=== PATIENT | female | born 1960 | race Caucasian/White ===

== ENCOUNTER 2018-02-21 06:06 | Emergency (ER) | payer SELFPAY ==
[2018-02-21] MEDS ORDERED: traMADol HCl 50 MG TAB ONE (06:21)
--- NOTE | 2018-02-21 08:24 | CT ---
PRELIMINARY REPORT/[facility]/EMERGENCY AFTER HOURS PROCEDURE: EXAM: CT Maxillofacial Without Intravenous Contrast CLINICAL HISTORY: 57 years old, female; Injury or trauma; Fall; Initial encounter; Blunt trauma (contusions or hematoma s); Forehead; Injury date: 02/21/18; Injury details: jesus Arriaza kristy - 02/21/2018 6: 28: 09 am . No previous. Er 4. 57 yo f presents to ed S/P fall. Pt reports she slipped getting out of her batht ub about 2 hours ago and hit her head. Pt reports facial pain and tooth pain in both her back and fro nt molar. Pt denies dizziness/lightheaded, denies loc, denies any other pain. Pt reports history of h epatitis c, pt takes aspirin to help but nothing stronger than aspirin. Pt reports she takes tramadol when in bad pain, tramadol is prescribed to her family member. TECHNIQUE: Axial computed tomography images of the face without intravenous contrast. All CT scans at this [facility] use one or more dose reduction techniques, viz.: automated exposure control; ma/Kv adjustment per patient size (including targeted exams where dose is matched to indication; i.e. head); or iterative reconstruction technique. Coronal and sagittal reformatted images were created and revie wed. COMPARISON: No relevant prior studies available. FINDINGS: No definite evidence of acute facial bone fracture. Orbital contents appear intact/unremarkable. Mild mucosal thickening in the left maxillary sinus. Included paranasal sinuses otherwise appear essentially clear. IMPRESSION: No definite acute facial bone/orbital fracture by CT. Paranasal sinus findings as discussed above. Thank you for allowing us to participate in the care of your patient. Dictated and Authenticated by: Juan Diego Mendoza MD 02/21/2018 7:18 AM Central Time ([place] & [place]) FINAL REPORT MAXILLOFACIAL CT: HISTORY: Patient involved in trauma. Facial injury and pain. FINDINGS: Noncontrast-enhanced axial images are obtained with coronal and sagittal reconstructions. The frontal, ethmoid, maxillary, and sphenoid sinuses demonstrate no evidence of acute fractures or d efinite air fluid levels. Some mild to moderate left maxillary sinus mucosal thickening is seen. No evidence of other facial fractures or bony lesions seen. IMPRESSION: Some mild left maxillary sinus mucosal thickening; otherwise, unremarkable CT maxillofacial. POS: [facility]
--- NOTE | 2018-02-21 08:24 | CT ---
PRELIMINARY REPORT/[facility]/EMERGENCY AFTER HOURS PROCEDURE: EXAM: CT Head Without Intravenous Contrast CLINICAL HISTORY: 57 years old, female; Injury or trauma; Fall; Initial encounter; Swelling (edema); Injury details: Im jesus Landry kristy - 02/21/2018 6: 28: 09 am. No previous. Er 4. 57 yo f presents to ed S/P fall. Pt reports she slipped getting out of her bathtub about 2 hours ago and hit her head. Pt reports fac ial pain and tooth pain in both her back and front molar. Pt denies dizziness/lightheaded, denies loc , denies any other pain. Pt reports history of hepatitis c, pt takes aspirin to help but nothing stro nger than aspirin. Pt reports she takes tramadol when in bad pain, tramadol is prescribed to her family me mber. TECHNIQUE: Axial computed tomography images of the head/brain without intravenous contrast. All CT scans at this facility use one or more dose reduction techniques, viz.: automated exposure control; ma/Kv adjustme nt per patient size (including targeted exams where dose is matched to indication; i.e. head); or ite rative reconstruction technique. COMPARISON: No relevant prior studies available. FINDINGS: Evidence for soft tissue injury/scalp hematoma in the left frontal region. No definite acute skull fracture. Included paranasal sinuses are essentially clear. No acute intracranial hemorrhage or mass effect. Ventricle size is normal for age. No definite acute infarct by CT. IMPRESSION: No acute intracranial bleed or mass effect. Evidence for soft tissue injury/scalp hematoma in the left frontal region. No definite acute skull fracture. Please see subsequent CT facial bone report for complete evaluation of the facial bones. Thank you for allowing us to participate in the care of your patient. Dictated and Authenticated by: Juan Diego Mendoza MD 02/21/2018 7:15 AM Central Time ([place] & [place]) FINAL REPORT EMERGENCY AFTER HOURS CT OF BRAIN PERFORMED WITHOUT CONTRAST ENHANCEMENT: Date: 02/21/18 HISTORY: Head injury, status post fall. FINDINGS: The ventricular and cisternal system is within normal limits. There are no signs of intracerebral hem orrhage or extra-axial fluid collections. Mastoid air cells and visualized sinuses are clear. IMPRESSION: 1. No acute intracranial abnormalities. 2. Left frontal scalp hematoma. This report is in agreement with the preliminary report issued by [facility]. POS: [facility]
== END 2018-02-21 07:51 | disposition left against medical advice (07) ==
LOC: ERS 06:06
DX: S00.83XA Contusion of other part of head, initial encounter (principal); J45.909 Unspecified asthma, uncomplicated; F31.9 Bipolar disorder, unspecified; F17.290 Nicotine dependence, other tobacco product, uncomplicated; Z79.899 Other long term (current) drug therapy; W01.198A Fall on same level from slipping, tripping and stumbling with subsequent striking against other object, initial encounter
CPT/HCPCS: 70450; 70486; 99406

== ENCOUNTER 2018-10-26 15:32 | Emergency (ER) | payer SELFPAY ==
--- NOTE | 2018-10-26 16:18 | RAD ---
TWO VIEWS CHEST: 10/26/18 PROVIDED CLINICAL HISTORY: Cough and congestion. FINDINGS: Comparison 06/06/13. The cardiac and mediastinal silhouette is unchanged in appearance. Calcified left hilar lymph nodes a re again seen. No focal consolidation, pleural fluid or pneumothorax apparent. IMPRESSION: No evidence for an acute cardiopulmonary process. POS: [facility]
== END 2018-10-26 16:51 | disposition home or self-care (01) ==
LOC: ERS 15:32
DX: J20.9 Acute bronchitis, unspecified (principal); J45.909 Unspecified asthma, uncomplicated; F31.9 Bipolar disorder, unspecified; F17.290 Nicotine dependence, other tobacco product, uncomplicated; Z79.899 Other long term (current) drug therapy
CPT/HCPCS: 71046

== ENCOUNTER 2019-06-11 11:37 | Emergency (ER) | payer SELFPAY ==
--- NOTE | 2019-06-11 12:24 | RAD ---
EXAM: Portable chest PROVIDED CLINICAL HISTORY: Chest pain COMPARISON: None 10/26/2018 FINDINGS: Cardiac and mediastinal silhouette is within normal limits. No focal consolidation, pleural fluid or pneumothorax evident. Calcified left hilar lymph nodes are again seen. IMPRESSION: No evidence for an acute cardiopulmonary process.
[2019-06-11 12:52] LABS: #Basophils 0.1 thou/uL (0.0-0.2); #Eosinphils 0.1 thou/uL (0.0-0.7); #Lymphocytes 5.7 thou/uL (1.20-3.40); #Monocytes 0.8 thou/uL (0.11-0.59); #Neutrophils 5.9 thou/uL (1.40-6.50); %Basophils 0.9 % (0.0-1.0); %Eosinophils 0.8 % (0.0-10.0); %Lymphocytes 45.1 % (21.0-51.0); %Neutrophils 47.2 % (42.0-75.0); Hemoglobin 15.5 g/dL (12.0-16.0); Mean Corpuscular HGB CONC 33.2 g/dL (32.0-36.0); Mean Corpuscular Hemoglobin 29.9 pg (27.0-31.0); Mean Platelet Volume 7.7 fL (7.4-10.4); Platelet Count 347 thou/uL (130-400); Red Blood Cell (RBC) Count 5.19 mill/uL (4.20-5.40); White Blood Cell (WBC) Count 12.5 thou/uL (4.8-10.8)
[2019-06-11 13:14] LABS: ALT (SGPT) 111 U/L (8-55); AST (SGOT) 130 U/L (5-34); Albumin 4.6 g/dL (3.5-5.0); Alkaline Phosphatase 80 U/L (40-150); Anion Gap 13 mmol/L (10-20); BUN (Urea Nitrogen) 6 mg/dL (9.8-20.1); Bilirubin, Total 0.3 mg/dL (0.2-1.2); CK (CPK) 213 U/L (29-168); Calc. Creatinine Clearance 0 mL/min (70-130); Calcium 9.4 mg/dL (7.8-10.44); Carbon Dioxide 27 mmol/L (22-29); Chloride 111 mmol/L (98-107); Estimated GFR-MDRD 72; Globulin 3.7 g/dL (2.4-3.5); Glucose 93 mg/dL (70-105); Potassium 4.2 mmol/L (3.5-5.1); Protein, Total 8.3 g/dL (6.0-8.3); Sodium 147 mmol/L (136-145)
== END 2019-06-11 13:13 | disposition left against medical advice (07) ==
LOC: EEVIPCON 11:37 → ERS 11:37
DX: R07.89 Other chest pain (principal); J45.909 Unspecified asthma, uncomplicated; F31.9 Bipolar disorder, unspecified; F41.9 Anxiety disorder, unspecified; Z79.899 Other long term (current) drug therapy; Z79.51 Long term (current) use of inhaled steroids
CPT/HCPCS: 36415; 71045; 80053; 82550; 84484; 85025; 93005; J7620

== ENCOUNTER 2019-09-19 08:40 | Emergency (ER) | payer SELFPAY ==
[2019-09-19] MEDS ORDERED: Lorazepam 1 MG TAB ONE (09:03)
[2019-09-19 09:14] LABS: Bilirubin Negative (Negative); Blood, Urine Negative (Negative); Clarity Turbid (Clear); Glucose, Urine (Dipstick) Normal (Negative); Leukocyte 500 Leu/uL (Negative); Nitrite Negative (Negative); Protein, Urine (Dipstick) Negative (Neg-Trace); Urobilinogen Normal mg/dL (Less than 2)
[2019-09-19 09:14] LABS: #Basophils 0.1 thou/uL (0.0-0.2); #Lymphocytes 4.5 thou/uL (1.20-3.40); #Monocytes 0.6 thou/uL (0.11-0.59); #Neutrophils 4.8 thou/uL (1.40-6.50); %Basophils 0.9 % (0.0-1.0); %Eosinophils 0.1 % (0.0-10.0); %Lymphocytes 44.9 % (21.0-51.0); %Monocytes 6.3 % (0.0-10.0); %Neutrophils 47.8 % (42.0-75.0); Hemoglobin 15.9 g/dL (12.0-16.0); Mean Corpuscular HGB CONC 32.8 g/dL (32.0-36.0); Mean Corpuscular Hemoglobin 30.2 pg (27.0-31.0); Mean Corpuscular Volume 92.1 fL (78.0-98.0); Mean Platelet Volume 8.3 fL (7.4-10.4); Platelet Count 331 thou/uL (130-400); RBC Distribution Width 12.6 % (11.5-14.5); Red Blood Cell (RBC) Count 5.28 mill/uL (4.20-5.40); White Blood Cell (WBC) Count 10.1 thou/uL (4.8-10.8)
[2019-09-19] MEDS ORDERED: Nicotine 21 MG PATCH TD SCH (09:15)
[2019-09-19 09:21] LABS: Amphetamine Not Detected (NotDetected); Barbiturates Screen Not Detected (NotDetected); Benzodiazepine Screen Not Detected (NotDetected); Cocaine Metabolite Screen Not Detected (NotDetected); Medtox Control Line Valid? VALID (VALID); Medtox Reader # READER 4; Methadone Not Detected (NotDetected); Methamphetamine Not Detected (NotDetected); Opiate Screen Not Detected (NotDetected); Oxycodone Screen Not Detected (NotDetected); Phencyclidine (PCP) Not Detected (NotDetected); THC/Cannabinoid Screen Detected (NotDetected); Tricyclic Screen Not Detected (NotDetected)
[2019-09-19 09:23] LABS: Bacteria/HPF Rare-Few HPF (None Seen); RBC/HPF 0-3 HPF (0-3)
[2019-09-19 09:39] LABS: Acetaminophen Less than 6.0 mcg/mL (10.0-30.0); Alcohol 219 mg/dL (Less than 10); Salicylate Less than 8.0 mg/dL (15.0-30.0)
[2019-09-19 11:10] LABS: ALT (SGPT) 108 U/L (8-55); AST (SGOT) 98 U/L (5-34); Albumin 4.6 g/dL (3.5-5.0); Alkaline Phosphatase 81 U/L (40-110); Anion Gap 11 mmol/L (10-20); BUN (Urea Nitrogen) 6 mg/dL (9.8-20.1); Bilirubin, Total 0.3 mg/dL (0.2-1.2); CK (CPK) 146 U/L (29-168); Calc. Creatinine Clearance 0 mL/min (70-130); Carbon Dioxide 26 mmol/L (22-29); Chloride 109 mmol/L (98-107); Estimated GFR-MDRD 73; Globulin 3.9 g/dL (2.4-3.5); Glucose 110 mg/dL (70-105); Potassium 3.9 mmol/L (3.5-5.1); Protein, Total 8.5 g/dL (6.0-8.3); Sodium 142 mmol/L (136-145)
== END 2019-09-19 17:13 | disposition home or self-care (01) ==
LOC: ERS 08:40
DX: F10.129 Alcohol abuse with intoxication, unspecified (principal); J45.909 Unspecified asthma, uncomplicated; F31.9 Bipolar disorder, unspecified; F41.9 Anxiety disorder, unspecified; Z79.899 Other long term (current) drug therapy
CPT/HCPCS: 36415; 80053; 80306; 80307; 81003; 81015; 82550; 84443; 85025; 93005

== ENCOUNTER 2019-12-01 05:51 | Emergency (ER) | payer SELFPAY ==
[2019-12-01] MEDS ORDERED: Ketorolac Tromethamine 30 MG/ML VIAL ONE (06:07)
--- NOTE | 2019-12-01 08:58 | CT ---
PRELIMINARY REPORT/[facility]/EMERGENCY AFTER HOURS PROCEDURE: EXAM: CT Thoracic Spine Without Intravenous Contrast. CLINICAL HISTORY: F59 presents tot he ED with c/o back pain x 2 years, worse this morning. Pt reports drinking alcohol last night and is not sure if she fell or injured her back. TECHNIQUE: Axial computed tomography images of the thoracic spine without intravenous contrast. Sagittal and cor onal reformations performed. CONTRAST: Without COMPARISON: None provided. FINDINGS: BONES: No acute fracture or focal osseous lesion. Bony alignment is anatomic. DISCS / DEGENERATIVE CHANGES: No significant disc or facet degeneration. No significant central canal or neural foraminal stenosis. SOFT TISSUES: The soft tissues are unremarkable. IMPRESSION: No acute thoracic spine abnormality. ELECTRONICALLY SIGNED BY: Eusebio Stout MD Dec 01, 2019 7:18:34 AM CDT This report is intended for review by the ordering physician only, in accordance of law. If you recei ve this report in error, please call [facility] at [phone]. FINAL REPORT EMERGENCY AFTER HOURS CT THORACIC SPINE: IMPRESSION: I agree with the preliminary interpretation given by [facility]. No evidence for fracture or tr aumatic subluxation. POS: [facility]
== END 2019-12-01 06:51 | disposition home or self-care (01) ==
LOC: ERS 05:51
DX: S20.222A Contusion of left back wall of thorax, initial encounter (principal); R91.8 Other nonspecific abnormal finding of lung field; J45.909 Unspecified asthma, uncomplicated; F41.9 Anxiety disorder, unspecified; F31.9 Bipolar disorder, unspecified; F17.210 Nicotine dependence, cigarettes, uncomplicated; F17.290 Nicotine dependence, other tobacco product, uncomplicated; Z79.899 Other long term (current) drug therapy; X58.XXXA Exposure to other specified factors, initial encounter
CPT/HCPCS: 72128; 96372; J1885

== ENCOUNTER → 2019-12-06 | Emergency (ER) | payer SELFPAY | LOC: ERS 09:10 | DX: S41.112A Laceration without foreign body of left upper arm, initial encounter (principal); S41.111A Laceration without foreign body of right upper arm, initial encounter; J45.909 Unspecified asthma, uncomplicated; F41.9 Anxiety disorder, unspecified; F31.9 Bipolar disorder, unspecified; F17.290 Nicotine dependence, other tobacco product, uncomplicated; W26.9XXA Contact with unspecified sharp object(s), initial encounter | CPT/HCPCS: 99284 ==

== ENCOUNTER 2021-02-18 00:56 | Emergency (ER) | payer SELFPAY | END 2021-02-18 01:47 | disposition home or self-care (01) | LOC: ERS 00:56 | DX: K08.89 Other specified disorders of teeth and supporting structures (principal); Z79.899 Other long term (current) drug therapy; I10 Essential (primary) hypertension; J45.909 Unspecified asthma, uncomplicated; F17.290 Nicotine dependence, other tobacco product, uncomplicated; F17.210 Nicotine dependence, cigarettes, uncomplicated | CPT/HCPCS: 99282 ==

== ENCOUNTER 2021-12-24 12:48 | Emergency (ER) | payer SELFPAY ==
[2021-12-24] MEDS ORDERED: HYDROcodone/Acetaminophen 5/325 mg Tablet ONE (13:19)
== END 2021-12-24 14:41 | disposition home or self-care (01) ==
LOC: ERS 12:48
DX: S92.354A Nondisplaced fracture of fifth metatarsal bone, right foot, initial encounter for closed fracture (principal); I10 Essential (primary) hypertension; J45.909 Unspecified asthma, uncomplicated; F17.210 Nicotine dependence, cigarettes, uncomplicated; F17.290 Nicotine dependence, other tobacco product, uncomplicated; X50.1XXA Overexertion from prolonged static or awkward postures, initial encounter; Z87.19 Personal history of other diseases of the digestive system; Z79.899 Other long term (current) drug therapy

== ENCOUNTER 2022-04-13 21:15 | Emergency (ER) | payer SELFPAY | END 2022-04-13 22:24 | disposition home or self-care (01) | LOC: ERS 21:15 | DX: S63.611A Unspecified sprain of left index finger, initial encounter (principal); I10 Essential (primary) hypertension; J45.909 Unspecified asthma, uncomplicated; F17.290 Nicotine dependence, other tobacco product, uncomplicated; W17.89XA Other fall from one level to another, initial encounter ==

== ENCOUNTER 2022-09-21 11:16 | Emergency (ER) | payer SELFPAY ==
[2022-09-21 13:45] LABS: #Lymphocytes 2.5 thou/uL (1.20-3.40); #Monocytes 0.6 thou/uL (0.11-0.59); #Neutrophils 3.4 thou/uL (1.40-6.50); %Basophils 0.7 % (0.0-1.0); %Eosinophils 0.1 % (0.0-10.0); %Lymphocytes 38.1 % (21.0-51.0); %Monocytes 9.5 % (0.0-10.0); %Neutrophils 51.7 % (42.0-75.0); Hemoglobin 13.1 g/dL (12.0-16.0); Mean Corpuscular HGB CONC 34.3 g/dL (32.0-36.0); Mean Corpuscular Hemoglobin 30.6 pg (27.0-31.0); Mean Corpuscular Volume 89.2 fl (78.0-98.0); Platelet Count 144 10x3/uL (130-400); RBC Distribution Width 13.6 % (11.5-14.5); Red Blood Cell (RBC) Count 4.27 mill/uL (4.20-5.40); White Blood Cell (WBC) Count 6.5 10x3/uL (4.8-10.8)
[2022-09-21 14:06] LABS: ALT (SGPT) 120 U/L (8-55); AST (SGOT) 181 U/L (5-34); Albumin 3.8 g/dL (3.4-4.8); Alkaline Phosphatase 83 U/L (40-110); Anion Gap 14 mmol/L (10-20); BUN (Urea Nitrogen) 9 mg/dL (9.8-20.1); Bilirubin, Total 0.9 mg/dL (0.2-1.2); Calc. Creatinine Clearance 0 mL/min (70-130); Calcium 8.7 mg/dL (7.8-10.44); Carbon Dioxide 21 mmol/L (23-31); Chloride 107 mmol/L (98-107); Estimated GFR 80; Globulin 4.7 g/dL (2.4-3.5); Glucose 90 mg/dL (80-115); Potassium 3.8 mmol/L (3.5-5.1); Protein, Total 8.5 g/dL (5.8-8.1); Sodium 138 mmol/L (136-145)
[2022-09-21 14:43] LABS: Bilirubin Negative (Negative); Blood, Urine Negative (Negative); Clarity Clear (Clear); Glucose, Urine (Dipstick) Normal (Negative); Ketone, Urine Negative (Negative); Leukocyte 500 Leu/uL (Negative); Nitrite Negative (Negative); Protein, Urine (Dipstick) Negative (Neg-Trace); RBC/HPF 0-3 HPF (0-3); Specific Gravity, Urine 1.011 (1.002-1.036); Squamous Epithelial 0-3 HPF (0-3); pH, Urine 5.5 (5.0-9.0)
[2022-09-21 14:44] LABS: Bacteria/HPF 1+ HPF (None Seen)
[2022-09-21] MEDS ORDERED: Orphenadrine Citrate 60 MG/2 ML VIAL ONE (15:00)
[2022-09-21 15:53] LABS: SARS-CoV-2 NAA Rapid Test DETECTED (NotDetected)
== END 2022-09-21 15:26 | disposition home or self-care (01) ==
LOC: ERS 11:16
DX: R07.89 Other chest pain (principal); R74.01 Elevation of levels of liver transaminase levels; I10 Essential (primary) hypertension; J45.909 Unspecified asthma, uncomplicated; F17.290 Nicotine dependence, other tobacco product, uncomplicated; Z20.822 Contact with and (suspected) exposure to COVID-19
CPT/HCPCS: 36415; 71045; 80053; 81003; 81015; 83880; 84484; 85025; 93005; 94760; 96372; J2360

== ENCOUNTER 2022-10-02 02:17 | Emergency (ER) | payer SELFPAY ==
[2022-10-02] MEDS ORDERED: Ondansetron PF 4 MG/2 ML Vial ONE (02:45)
[2022-10-02 03:28] LABS: #Lymphocytes 2.1 thou/uL (1.20-3.40); #Monocytes 0.7 thou/uL (0.11-0.59); %Basophils 0.2 % (0.0-1.0); %Eosinophils 0.2 % (0.0-10.0); %Lymphocytes 36.3 % (21.0-51.0); %Monocytes 11.9 % (0.0-10.0); %Neutrophils 51.3 % (42.0-75.0); Hemoglobin 12.7 g/dL (12.0-16.0); Mean Corpuscular HGB CONC 33.6 g/dL (32.0-36.0); Mean Corpuscular Hemoglobin 29.5 pg (27.0-31.0); Mean Corpuscular Volume 87.8 fl (78.0-98.0); Mean Platelet Volume 8.7 fL (7.4-10.4); Platelet Count 167 10x3/uL (130-400); RBC Distribution Width 13.7 % (11.5-14.5); Red Blood Cell (RBC) Count 4.32 mill/uL (4.20-5.40); White Blood Cell (WBC) Count 5.8 10x3/uL (4.8-10.8)
[2022-10-02 03:44] LABS: ALT (SGPT) 113 U/L (8-55); AST (SGOT) 134 U/L (5-34); Albumin 3.6 g/dL (3.4-4.8); Alkaline Phosphatase 68 U/L (40-110); Anion Gap 10 mmol/L (10-20); BUN (Urea Nitrogen) 8 mg/dL (9.8-20.1); Bilirubin, Total 0.6 mg/dL (0.2-1.2); Calc. Creatinine Clearance 0 mL/min (70-130); Calcium 8.5 mg/dL (7.8-10.44); Carbon Dioxide 25 mmol/L (23-31); Chloride 107 mmol/L (98-107); Estimated GFR 98; Globulin 4.9 g/dL (2.4-3.5); Glucose 111 mg/dL (80-115); Lipase 65 U/L (8-78); Protein, Total 8.5 g/dL (5.8-8.1); Sodium 139 mmol/L (136-145)
[2022-10-02] MEDS ORDERED: Potassium Chloride 20 MEQ TAB ONE (04:05)
[2022-10-02 05:00] LABS: Bilirubin Negative (Negative); Blood, Urine Negative (Negative); Clarity Clear (Clear); Glucose, Urine (Dipstick) Normal (Negative); Ketone, Urine Negative (Negative); Leukocyte 250 Leu/uL (Negative); Nitrite Negative (Negative); Protein, Urine (Dipstick) Negative (Neg-Trace); RBC/HPF 0-3 HPF (0-3); Specific Gravity, Urine 1.006 (1.002-1.036); Squamous Epithelial 0-3 HPF (0-3); Urobilinogen Normal mg/dL (Less than 2)
[2022-10-02 05:04] LABS: Bacteria/HPF 1+ HPF (None Seen)
[2022-10-02] MEDS ORDERED: Iopamidol-370 76% 500 ML 1 ML ONE (15:46)
== END 2022-10-02 05:34 | disposition home or self-care (01) ==
LOC: ERS 02:17
DX: U09.9 Post COVID-19 condition, unspecified (principal); K80.20 Calculus of gallbladder without cholecystitis without obstruction; E87.6 Hypokalemia; R74.01 Elevation of levels of liver transaminase levels; I10 Essential (primary) hypertension; F17.290 Nicotine dependence, other tobacco product, uncomplicated
CPT/HCPCS: 74177; 80053; 81003; 81015; 83690; 84484; 85025; 93005; 94760; 96361; 96374; J2405; Q9967

== ENCOUNTER 2023-04-20 06:13 | Emergency (ER) | payer SELFPAY ==
[2023-04-20] MEDS ORDERED: HYDROcodone/Acetaminophen 5/325 mg Tablet ONE (06:49)
== END 2023-04-20 06:55 | disposition home or self-care (01) ==
LOC: ERS 06:13
DX: K04.7 Periapical abscess without sinus (principal); I10 Essential (primary) hypertension; F17.290 Nicotine dependence, other tobacco product, uncomplicated
CPT/HCPCS: 99282

== ENCOUNTER 2023-07-22 05:53 | Emergency (ER) | payer SELFPAY ==
[2023-07-22] MEDS ORDERED: Dicyclomine 20 MG/2 ML VIAL ONE (06:12)
[2023-07-22 06:29] LABS: #Monocytes 0.5 thou/uL (0.11-0.59); #Neutrophils 4.4 thou/uL (1.40-6.50); %Lymphocytes 34.9 % (21.0-51.0); %Monocytes 6.8 % (0.0-10.0); %Neutrophils 57.9 % (42.0-75.0); Hematocrit 34.3 % (36.0-47.0); Hemoglobin 11.4 g/dL (12.0-16.0); Mean Corpuscular HGB CONC 33.2 g/dL (32.0-36.0); Mean Corpuscular Hemoglobin 29.6 pg (27.0-31.0); Mean Corpuscular Volume 89.1 fl (78.0-98.0); Mean Platelet Volume 10.1 fL (7.4-10.4); Platelet Count 166 10x3/uL (130-400); RBC Distribution Width 14.8 % (11.5-14.5); Red Blood Cell (RBC) Count 3.85 mill/uL (4.20-5.40); White Blood Cell (WBC) Count 7.6 10x3/uL (4.8-10.8)
[2023-07-22 06:52] LABS: ALT (SGPT) 76 U/L (8-55); AST (SGOT) 168 U/L (5-34); Albumin 3.8 g/dL (3.4-4.8); Alkaline Phosphatase 122 U/L (40-110); Anion Gap 9 mmol/L (10-20); BUN (Urea Nitrogen) Less than 4 mg/dL (9.8-20.1); Bilirubin, Total 1.1 mg/dL (0.2-1.2); Calc. Creatinine Clearance 0 mL/min (70-130); Calcium 8.8 mg/dL (7.8-10.44); Carbon Dioxide 27 mmol/L (23-31); Chloride 106 mmol/L (98-107); Estimated GFR 85; Glucose 106 mg/dL (80-115); Lipase 62 U/L (8-78); Potassium 3.3 mmol/L (3.5-5.1); Protein, Total 8.8 g/dL (5.8-8.1); Sodium 139 mmol/L (136-145)
[2023-07-22 07:02] LABS: Bilirubin Negative (Negative); Blood, Urine Negative (Negative); CAUTI Indications for Culture Dysuria,urgency,freq; Clarity Clear (Clear); Glucose, Urine (Dipstick) Normal (Negative); Ketone, Urine Negative (Negative); Leukocyte 75 Leu/uL (Negative); Nitrite Negative (Negative); Protein, Urine (Dipstick) Negative (Neg-Trace); RBC/HPF None Seen HPF (0-3); Specific Gravity, Urine 1.002 (1.002-1.036); Squamous Epithelial 0-3 HPF (0-3); Urobilinogen Normal mg/dL (Less than 2); WBC/HPF 0-3 HPF (0-3); pH, Urine 6.5 (5.0-9.0)
[2023-07-22 07:03] LABS: Bacteria/HPF 1+ HPF (None Seen)
[2023-07-22 07:04] LABS: Urine Culture Reflex No No
== END 2023-07-22 07:18 | disposition home or self-care (01) ==
LOC: ERS 05:53
DX: R11.0 Nausea (principal); N39.0 Urinary tract infection, site not specified; F17.290 Nicotine dependence, other tobacco product, uncomplicated
CPT/HCPCS: 36415; 80053; 81001; 83690; 85025; 96372; 99283

== ENCOUNTER 2023-09-03 18:47 | Inpatient (IN) | payer SELFPAY ==
[~2023-09-03 18:47] MED LIST: Iopamidol 370 76% 100 ML VIAL ONE
[2023-09-03 19:33] LABS: #Monocytes 1.5 thou/uL (0.11-0.59); #Neutrophils 6.8 thou/uL (1.40-6.50); %Basophils 0.1 % (0.0-1.0); %Lymphocytes 7.6 % (21.0-51.0); %Monocytes 16.3 % (0.0-10.0); %Neutrophils 75.1 % (42.0-75.0); Hematocrit 27.7 % (36.0-47.0); Hemoglobin 10.1 g/dL (12.0-16.0); Mean Corpuscular HGB CONC 36.5 g/dL (32.0-36.0); Mean Corpuscular Hemoglobin 30.4 pg (27.0-31.0); Mean Corpuscular Volume 83.4 fl (78.0-98.0); Mean Platelet Volume 10.6 fL (7.4-10.4); Platelet Count 172 10x3/uL (130-400); RBC Distribution Width 21.7 % (11.5-14.5); Red Blood Cell (RBC) Count 3.32 mill/uL (4.20-5.40)
[2023-09-03 19:49] LABS: Actual Bicarbonate (HCO3a) 21.6 mEq/L (22-28); Analyzer IN Cardio ER; Base Excess (BEa) -1.5 mEq/L (-2.0 to +3.0); CO2 Tension 30.5 mmHg (35.0-45.0); Calcium, Ionized (arterial) 0.99 mmol/L (1.12-1.30); Carboxyhemoglobin (COHb) 1.7 gm% (0.0-3.0); Hematocrit-ABG 30 % (36.0-47.0); Hemoglobin (Hb) 10.1 g/dL (12.0-16.0); O2 Tension (PaO2), arterial 100.7 mmHg (> 80.0); Potassium - ABG Lab 2.95 mmol/L (3.70-5.30); pH, Arterial 7.468 (7.35-7.45)
[2023-09-03 19:54] LABS: ALT (SGPT) 65 U/L (8-55); AST (SGOT) 237 U/L (5-34); Albumin 2.4 g/dL (3.4-4.8); Alkaline Phosphatase 107 U/L (40-110); Anion Gap 16 mmol/L (10-20); BUN (Urea Nitrogen) 40 mg/dL (9.8-20.1); Calc. Creatinine Clearance 0 mL/min (70-130); Calcium 7.8 mg/dL (7.8-10.44); Carbon Dioxide 20 mmol/L (23-31); Chloride 93 mmol/L (98-107); Estimated GFR 20; Globulin 4.7 g/dL (2.4-3.5); Glucose 98 mg/dL (80-115); Potassium 2.8 mmol/L (3.5-5.1); Protein, Total 7.1 g/dL (5.8-8.1); Sodium 126 mmol/L (136-145)
[2023-09-03 19:55] LABS: Puncture Site RRA
[2023-09-03 19:58] LABS: Acetaminophen Less than 10 mcg/mL (10.0-30.0); Alcohol Less than 10.0 mg/dL (Less than 10); INR-International Normal Ratio 2.2; Lipase 137 U/L (8-78); Prothrombin Time 25.1 sec (12.0-14.7); Salicylate Less than 8.0 mg/dL (15.0-30.0)
[2023-09-03 19:59] LABS: PTT 55.7 sec (22.9-36.1); Troponin I 0.022 ng/mL (< 0.028)
[2023-09-03 20:04] LABS: Bilirubin, Total 28.1 mg/dL (0.2-1.2)
[2023-09-03] MEDS ORDERED: Piperacillin/Tazobactam 3.375 GM VIAL ONE (21:04)
[2023-09-03] MEDS ORDERED: Sodium Chloride 0.9% 100 ML ONE (21:06)
[2023-09-03] MEDS ORDERED: HumaLOG 300 UNITS/3 ML VIAL ONE (21:57)
[2023-09-03] MEDS ORDERED: Potassium Bicarbonate/Cit Ac 20 MEQ TAB ONE (22:51)
[2023-09-03] MEDS ORDERED: Potassium Chloride 20 MEQ TAB ONE (23:06)
[2023-09-03] MEDS ORDERED: LORazepam 2 MG/ML SYR.(CARPUJECT) ONE (23:31)
[2023-09-04] MEDS ORDERED: Ondansetron ODT 4 MG TAB PO PRN (00:09)
[2023-09-04] MEDS ORDERED: Ondansetron PF 4 MG/2 ML Vial IVP PRN (00:09)
[2023-09-04] MEDS ORDERED: Acetaminophen 650 MG Suppository PR PRN (00:09)
[2023-09-04] MEDS ORDERED: Acetaminophen 325 MG TAB PO PRN (00:09)
[2023-09-04] MEDS ORDERED: Multivitamins, Adult 10 ML, Thiamine HCl 100 MG, Folic Acid 1 MG in Dextrose 5 %-0.45 %... IV SCH (00:15)
[2023-09-04] MEDS ORDERED: Piperacillin/Tazobactam 3.375 GM VIAL ONE (00:27)
[2023-09-04] MEDS ORDERED: Sodium Chloride 0.9% 100 ML ONE (00:27)
[2023-09-04] MEDS ORDERED: Albumin 25% 25 GM/100 ML BOT IVPB SCH (00:30)
[2023-09-04] MEDS ORDERED: Lorazepam 1 MG TAB PO PRN (00:49)
[2023-09-04] MEDS ORDERED: Lorazepam 2 MG/ML VIAL IM PRN (00:49)
[2023-09-04] MEDS ORDERED: Electrolyte Replacement Protocol 1 EACH FS SCH (01:00)
[2023-09-04] MEDS ORDERED: Piperacillin/Tazobactam 3.375 GM in Sodium Chloride 0.9% 100 ML IVPB SCH ×2 (01:00→13:00)
[2023-09-04] MEDS ORDERED: Lorazepam 1 MG TAB ONE (01:25)
[2023-09-04] MEDS ORDERED: Thiamine HCl 200 MG/2 ML VIAL ONE (01:27)
[2023-09-04] MEDS: Lorazepam 1 MG TAB PO SCH ×2 (01:35→01:55)
[2023-09-04] MEDS: Thiamine HCl 200 MG/2 ML VIAL SLOW IVP SCH (01:36)
[2023-09-04 01:52] LABS: Bilirubin, Total 29.1 mg/dL (0.2-1.2)
[2023-09-04 01:52] LABS: Bilirubin, Total 28.8 mg/dL (0.2-1.2)
[2023-09-04 02:12] LABS: ALT (SGPT) 67 U/L (8-55); AST (SGOT) 230 U/L (5-34); Albumin 2.7 g/dL (3.4-4.8); Alkaline Phosphatase 93 U/L (40-110); Anion Gap 17 mmol/L (10-20); BUN (Urea Nitrogen) 40 mg/dL (9.8-20.1); Calc. Creatinine Clearance 0 mL/min (70-130); Calcium 7.5 mg/dL (7.8-10.44); Carbon Dioxide 17 mmol/L (23-31); Chloride 94 mmol/L (98-107); Estimated GFR 20; Globulin 4.3 g/dL (2.4-3.5); Glucose 136 mg/dL (80-115); Magnesium 1.7 mg/dL (1.6-2.6); Phosphorus 4.4 mg/dL (2.3-4.7); Potassium 3.3 mmol/L (3.5-5.1); Sodium 125 mmol/L (136-145)
[2023-09-04 02:13] LABS: ALT (SGPT) 66 U/L (8-55); AST (SGOT) 229 U/L (5-34); Albumin 2.7 g/dL (3.4-4.8); Alkaline Phosphatase 92 U/L (40-110); Protein, Total 7.2 g/dL (5.8-8.1)
[2023-09-04 02:25] LABS: Bilirubin, Direct 17.9 mg/dL (0.1-0.3)
[2023-09-04 03:29] LABS: HIV (1/2) Antibody/Antigen Non-Reactive (NonReactive); HIV 1/2 INDEX 0.13 S/CO (<1.00)
[2023-09-04 04:11] LABS: Bilirubin, Total 31.5 mg/dL (0.2-1.2)
[2023-09-04 04:20] LABS: Iron 71 ug/dL (50-170); Iron Binding Capacity, Total 169 mcg/dL (265-497)
[2023-09-04] MEDS ORDERED: Acetaminophen 325 MG/10.15 ML UDCUP ONE (04:22)
[2023-09-04 04:24] LABS: Anion Gap 17 mmol/L (10-20); BUN (Urea Nitrogen) 41 mg/dL (9.8-20.1); Calc. Creatinine Clearance 26 mL/min (70-130); Carbon Dioxide 17 mmol/L (23-31); Chloride 96 mmol/L (98-107); Potassium 3.3 mmol/L (3.5-5.1); Sodium 127 mmol/L (136-145)
[2023-09-04 04:25] LABS: ALT (SGPT) 67 U/L (8-55); AST (SGOT) 235 U/L (5-34); Albumin 2.6 g/dL (3.4-4.8); Alkaline Phosphatase 93 U/L (40-110); Calcium 7.8 mg/dL (7.8-10.44); Estimated GFR 21; Globulin 4.4 g/dL (2.4-3.5); Glucose 186 mg/dL (80-115); Iron 69 ug/dL (50-170); Iron Binding Capacity, Total 169 mcg/dL (265-497)
[2023-09-04 05:22] LABS: Amphetamine Not Detected (NotDetected); Barbiturates Screen Not Detected (NotDetected); Benzodiazepine Screen Not Detected (NotDetected); Cocaine Metabolite Screen Not Detected (NotDetected); Methadone Not Detected (NotDetected); Methamphetamine Not Detected (NotDetected); Opiate Screen Not Detected (NotDetected); Oxycodone Screen Not Detected (NotDetected); Phencyclidine (PCP) Not Detected (NotDetected); THC/Cannabinoid Screen Detected (NotDetected); Tricyclic Screen Not Detected (NotDetected)
[2023-09-04 05:52] LABS: Actual Bicarbonate (HCO3a) 19.4 mEq/L (22-28); Analyzer IN Cardio ER; Base Excess (BEa) -4.9 mEq/L (-2.0 to +3.0); CO2 Tension 33.4 mmHg (35.0-45.0); Calcium, Ionized (arterial) 1.01 mmol/L (1.12-1.30); Carboxyhemoglobin (COHb) 1.6 gm% (0.0-3.0); Hematocrit-ABG 29 % (36.0-47.0); Potassium - ABG Lab 3.03 mmol/L (3.70-5.30); pH, Arterial 7.383 (7.35-7.45)
[2023-09-04 06:03] LABS: O2 Tension (PaO2), arterial 56.6 mmHg (> 80.0)
[2023-09-04 06:04] LABS: Puncture Site RRA
[2023-09-04] MEDS ORDERED: Ipratropium/Albuterol 3 ML NEB NEB PRN (06:12)
[2023-09-04] MEDS ORDERED: Morphine 2 MG/ML VIAL SLOW IVP PRN (06:19)
[2023-09-04] MEDS ORDERED: Lorazepam 2 MG/ML VIAL SLOW IVP PRN ×2 (06:30)
[2023-09-04] MEDS ORDERED: Doxycycline 100 MG in Sodium Chloride 0.9% 100 ML IVPB SCH (07:00)
[2023-09-04] MEDS ORDERED: Rocuronium Bromide 10 MG/ML (10ML VIAL) ONE (07:24)
[2023-09-04] MEDS ORDERED: Propofol 1,000 MG/100 ML VIAL IV ONE (07:24)
[2023-09-04] MEDS ORDERED: Ventilator Sedation Protocol 1 EACH FS SCH (07:44)
[2023-09-04] MEDS: Ipratropium/Albuterol 3 ML NEB NEB SCH ×5 (07:45→21:52)
[2023-09-04] MEDS ORDERED: Sodium Chloride 0.9% 1,000 ML IV SCH ×2 (08:00→10:26)
[2023-09-04] MEDS ORDERED: DISCONTINUE PREVIOUS NARCOTIC PAIN MEDICATIONS AND BENZODIAZEPINES FS SCH (08:15)
[2023-09-04] MEDS ORDERED: Propofol BOLUS 1,000 MG/100 ML VIAL IV PRN (08:15)
[2023-09-04] MEDS ORDERED: Fentanyl BOLUS 250 ML IVPB PRN (08:15)
[2023-09-04 08:28] LABS: Actual Bicarbonate (HCO3a) 17.7 mEq/L (22-28); Base Excess (BEa) -7.6 mEq/L (-2.0 to +3.0); Calcium, Ionized (arterial) 1.02 mmol/L (1.12-1.30); Carboxyhemoglobin (COHb) 1.4 gm% (0.0-3.0); Hematocrit-ABG 29 % (36.0-47.0); Hemoglobin (Hb) 9.9 g/dL (12.0-16.0); O2 Tension (PaO2), arterial 91.7 mmHg (> 80.0); pH, Arterial 7.322 (7.35-7.45)
[2023-09-04 08:31] LABS: Potassium - ABG Lab 2.62 mmol/L (3.70-5.30); Puncture Site RBA
[2023-09-04] MEDS ORDERED: Heparin 5,000 UNITS/ML VIAL SC SCH (09:00)
[2023-09-04] MEDS: Multivit, Therapeutic 1 TAB PO SCH (09:00)
[2023-09-04] MEDS: Folic Acid 1 MG TAB PO SCH (09:00)
[2023-09-04] MEDS ORDERED: Famotidine/PF 20 mg/2ml Vial SLOW IVP SCH (09:00)
[2023-09-04] MEDS: Albumin 25% 25 GM/100 ML BOT IVPB SCH ×3 (10:30→19:33)
[2023-09-04] MEDS: Sodium Chloride 0.9% 1,000 ML IV SCH (11:00)
[2023-09-04] MEDS: Potassium Chloride 20 MEQ in Premix 1 BAG IVPB SCH ×2 (12:00→16:06)
[2023-09-04] MEDS: Lorazepam 2 MG/ML VIAL SLOW IVP SCH ×4 (12:59→23:05)
[2023-09-04] MEDS: Lorazepam 2 MG/ML VIAL SLOW IVP PRN ×2 (16:04→18:00)
[2023-09-04] MEDS: Piperacillin/Tazobactam 3.375 GM in Sodium Chloride 0.9% 100 ML IVPB SCH (16:30)
[2023-09-04] MEDS: Fentanyl CADD 100 ML IV SCH (18:10)
[2023-09-04] MEDS: Propofol 1,000 MG/100 ML VIAL IV PRN (18:21)
[2023-09-04] MEDS: Doxycycline 100 MG in Sodium Chloride 0.9% 100 ML IVPB SCH (21:18)
[2023-09-04] MEDS ORDERED: Vecuronium 10 MG VIAL IVP SCH (21:30)
[2023-09-04] MEDS ORDERED: Lactated Ringer's 500 ML IV SCH (22:45)
[2023-09-05] MEDS ORDERED: Lorazepam 2 MG/ML VIAL SLOW IVP PRN (00:01)
[2023-09-05] MEDS ORDERED: Vecuronium 10 MG VIAL ONE (00:19)
[2023-09-05] MEDS ORDERED: Sterile Water 10 ML ONE (00:19)
[2023-09-05] MEDS: Piperacillin/Tazobactam 3.375 GM in Sodium Chloride 0.9% 100 ML IVPB SCH ×3 (00:38→17:04)
[2023-09-05] MEDS: Thiamine HCl 200 MG/2 ML VIAL SLOW IVP SCH (00:40)
[2023-09-05] MEDS ORDERED: Lorazepam 1 MG TAB PO PRN (00:50)
[2023-09-05] MEDS: Ipratropium/Albuterol 3 ML NEB NEB SCH ×6 (02:16→21:44)
[2023-09-05 05:27] LABS: %Basophils 0.1 % (0.0-1.0); %Monocytes 8.2 % (0.0-10.0); %Neutrophils 85.6 % (42.0-75.0); Hematocrit 23.7 % (36.0-47.0); Hemoglobin 8.2 g/dL (12.0-16.0); Mean Corpuscular HGB CONC 34.6 g/dL (32.0-36.0); Mean Corpuscular Volume 86.8 fl (78.0-98.0); Mean Platelet Volume 10.7 fL (7.4-10.4); Platelet Count 152 10x3/uL (130-400); RBC Distribution Width 22.7 % (11.5-14.5); Red Blood Cell (RBC) Count 2.73 mill/uL (4.20-5.40); White Blood Cell (WBC) Count 11.7 10x3/uL (4.8-10.8)
[2023-09-05] MEDS: Sodium Chloride 0.9% 1,000 ML IV SCH (05:59)
[2023-09-05] MEDS ORDERED: Lorazepam 2 MG/ML VIAL SLOW IVP SCH (06:00)
[2023-09-05 06:09] LABS: ALT (SGPT) 67 U/L (8-55); AST (SGOT) 231 U/L (5-34); Albumin 3.4 g/dL (3.4-4.8); Alkaline Phosphatase 79 U/L (40-110); Anion Gap 15 mmol/L (10-20); BUN (Urea Nitrogen) 45 mg/dL (9.8-20.1); Calc. Creatinine Clearance 26 mL/min (70-130); Calcium 7.8 mg/dL (7.8-10.44); Carbon Dioxide 16 mmol/L (23-31); Chloride 102 mmol/L (98-107); Estimated GFR 18; Globulin 3.5 g/dL (2.4-3.5); Glucose 167 mg/dL (80-115); Magnesium 1.9 mg/dL (1.6-2.6); Phosphorus 2.4 mg/dL (2.3-4.7); Potassium 2.5 mmol/L (3.5-5.1); Protein, Total 6.9 g/dL (5.8-8.1); Sodium 130 mmol/L (136-145)
[2023-09-05 06:11] LABS: Bilirubin, Total 30.8 mg/dL (0.2-1.2)
[2023-09-05 06:19] LABS: HBCM Index 0.07 S/CO (0-0.79); HBSAg Index 0.17 S/CO (0-0.99); Hep A IgM AB Non-Reactive S/CO (NonReactive); Hep A IgM S/CO 0.16 S/CO (0-0.79); Hep B Surf Ag Non-Reactive S/CO (NonReactive); Hepatitis B Core IgM Abs Non-Reactive S/CO (NonReactive)
[2023-09-05 06:28] LABS: Hep C IgG Ab Reflex HepC Qnt S/CO (NonReactive); Hep C Index 10.27 S/CO (0-0.79)
[2023-09-05] MEDS ORDERED: Potassium Chloride 20 MEQ in Premix 1 BAG IVPB SCH (06:45)
[2023-09-05 06:56] LABS: Base Excess (BEa) -7.1 mEq/L (-2.0 to +3.0); CO2 Tension 40.9 mmHg (35.0-45.0); Carboxyhemoglobin (COHb) 2.5 gm% (0.0-3.0); Hematocrit-ABG 27 % (36.0-47.0); Hemoglobin (Hb) 9.1 g/dL (12.0-16.0); O2 Tension (PaO2), arterial 60.9 mmHg (> 80.0); pH, Arterial 7.285 (7.35-7.45)
[2023-09-05 06:57] LABS: Puncture Site RBA
[2023-09-05] MEDS: Multivit, Therapeutic 1 TAB PO SCH (08:58)
[2023-09-05] MEDS: Doxycycline 100 MG in Sodium Chloride 0.9% 100 ML IVPB SCH ×2 (08:58→20:16)
[2023-09-05] MEDS: Folic Acid 1 MG TAB PO SCH (08:58)
[2023-09-05] MEDS: Pantoprazole 40 MG VIAL IVP SCH (08:59)
[2023-09-05] MEDS ORDERED: Magnesium 2 GM/50 ML(in water) 2 GM in Premix 1 BAG IVPB SCH (11:45)
[2023-09-05] MEDS ORDERED: Potassium Chloride 40 MEQ in Premix 1 BAG IVPB SCH (11:45)
[2023-09-05] MEDS: Albumin 25% 25 GM/100 ML BOT IVPB SCH ×3 (12:07→22:36)
[2023-09-05 12:19] LABS: Anion Gap 14 mmol/L (10-20); BUN (Urea Nitrogen) 45 mg/dL (9.8-20.1); Calc. Creatinine Clearance 25 mL/min (70-130); Calcium 7.7 mg/dL (7.8-10.44); Carbon Dioxide 16 mmol/L (23-31); Chloride 104 mmol/L (98-107); Estimated GFR 17; Glucose 144 mg/dL (80-115); Sodium 131 mmol/L (136-145)
[2023-09-05] MEDS ORDERED: NOREPINEPHRINE 8 MG/250 ML-D5W 250 ML ONE (12:37)
[2023-09-05] MEDS: Lorazepam 2 MG/ML VIAL SLOW IVP PRN ×4 (12:42→20:25)
[2023-09-05] MEDS: NOREPINEPHRINE 8 MG/250 ML-D5W 250 ML IVPB SCH ×2 (12:42→22:36)
[2023-09-05] MEDS: Fentanyl CADD 100 ML IV SCH (12:54)
[2023-09-05] MEDS ORDERED: Vecuronium 10 MG VIAL IVP SCH (13:30)
[2023-09-05] MEDS: Propofol 1,000 MG/100 ML VIAL IV PRN (16:11)
[2023-09-06] MEDS ORDERED: Lorazepam 2 MG/ML VIAL SLOW IVP PRN (00:01)
[2023-09-06] MEDS ORDERED: Lorazepam 1 MG TAB PO PRN (00:50)
[2023-09-06] MEDS ORDERED: Lorazepam 0.5 MG TAB PO SCH (01:00)
[2023-09-06] MEDS: Piperacillin/Tazobactam 3.375 GM in Sodium Chloride 0.9% 100 ML IVPB SCH ×3 (01:50→20:43)
[2023-09-06] MEDS: Ipratropium/Albuterol 3 ML NEB NEB SCH ×6 (02:25→22:03)
[2023-09-06] MEDS: Thiamine HCl 200 MG/2 ML VIAL SLOW IVP SCH (02:30)
[2023-09-06] MEDS: Sodium Chloride 0.9% 1,000 ML IV SCH ×2 (03:25→16:28)
[2023-09-06] MEDS: NOREPINEPHRINE 8 MG/250 ML-D5W 250 ML IVPB SCH ×3 (05:31→14:51)
[2023-09-06] MEDS: Albumin 25% 25 GM/100 ML BOT IVPB SCH (05:31)
[2023-09-06] MEDS ORDERED: Lorazepam 2 MG/ML VIAL SLOW IVP SCH (06:00)
[2023-09-06 07:53] LABS: Hematocrit 24.5 % (36.0-47.0); Hemoglobin 8.1 g/dL (12.0-16.0); Manual Diff?? YES; Mean Corpuscular HGB CONC 33.1 g/dL (32.0-36.0); Mean Corpuscular Hemoglobin 30.9 pg (27.0-31.0); Mean Corpuscular Volume 93.5 fl (78.0-98.0); Mean Platelet Volume 10.9 fL (7.4-10.4); Platelet Count 141 10x3/uL (130-400); RBC Distribution Width 22.7 % (11.5-14.5); Red Blood Cell (RBC) Count 2.62 mill/uL (4.20-5.40); White Blood Cell (WBC) Count 16.3 10x3/uL (4.8-10.8)
[2023-09-06 07:55] LABS: Delete Auto Diff?? YES
[2023-09-06 08:17] LABS: Actual Bicarbonate (HCO3a) 16.2 mEq/L (22-28); CO2 Tension 47.8 mmHg (35.0-45.0); Calcium, Ionized (arterial) 1.09 mmol/L (1.12-1.30); Carboxyhemoglobin (COHb) 2.6 gm% (0.0-3.0); Hematocrit-ABG 26 % (36.0-47.0); Hemoglobin (Hb) 8.9 g/dL (12.0-16.0); O2 Tension (PaO2), arterial 68.2 mmHg (> 80.0); Potassium - ABG Lab 3.69 mmol/L (3.70-5.30)
[2023-09-06 08:20] LABS: Puncture Site LRA; pH, Arterial 7.148 (7.35-7.45)
[2023-09-06 08:21] LABS: Anion Gap 18 mmol/L (10-20); BUN (Urea Nitrogen) 49 mg/dL (9.8-20.1); Calc. Creatinine Clearance 17 mL/min (70-130); Calcium 8.2 mg/dL (7.8-10.44); Carbon Dioxide 16 mmol/L (23-31); Chloride 102 mmol/L (98-107); Estimated GFR 11; Glucose 118 mg/dL (80-115); Magnesium 2.4 mg/dL (1.6-2.6); Potassium 3.7 mmol/L (3.5-5.1); Sodium 132 mmol/L (136-145)
[2023-09-06 08:32] LABS: Anisocytosis SLIGHT = 6-15 cells (100X) (0-5/hpf); Band 7 % (5-11); Eosinophils 3 % (0-10); Lymphocytes 10 % (21-51); Monocytes 15 % (0-10); Neutrophil 64 % (42-75); Reactive Lymphocytes 1 % (0-10)
[2023-09-06 08:33] LABS: Hypochromia SLIGHT = 6-15 cells (100X) (0-5/hpf); Large Platelets SLIGHT (None Seen); Platelet Adequacy Comment Appears Adequate
[2023-09-06] MEDS: Doxycycline 100 MG in Sodium Chloride 0.9% 100 ML IVPB SCH ×2 (09:07→20:43)
[2023-09-06] MEDS: Multivit, Therapeutic 1 TAB PO SCH (09:08)
[2023-09-06] MEDS: Pantoprazole 40 MG VIAL IVP SCH (09:08)
[2023-09-06] MEDS: Folic Acid 1 MG TAB PO SCH (09:08)
[2023-09-06] MEDS: prednisoLONE 10 MG ODT TAB PER TUBE SCH (09:10)
[2023-09-06 10:42] VITALS: BMI 30.9
[2023-09-06 20:09] LABS: Base Excess (BEa) -13.6 mEq/L (-2.0 to +3.0); CO2 Tension 46.2 mmHg (35.0-45.0); Calcium, Ionized (arterial) 1.12 mmol/L (1.12-1.30); Carboxyhemoglobin (COHb) 2.2 gm% (0.0-3.0); Hematocrit-ABG 28 % (36.0-47.0); Hemoglobin (Hb) 9.5 g/dL (12.0-16.0); Potassium - ABG Lab 3.71 mmol/L (3.70-5.30)
[2023-09-06 20:11] LABS: O2 Tension (PaO2), arterial 55.6 mmHg (> 80.0); pH, Arterial 7.127 (7.35-7.45)
[2023-09-06 20:12] LABS: Actual Bicarbonate (HCO3a) 14.9 mEq/L (22-28); Puncture Site RBA
[2023-09-06] MEDS: Thiamine 100 MG TAB PO SCH (20:45)
[2023-09-07] MEDS ORDERED: Lorazepam 2 MG/ML VIAL SLOW IVP PRN (00:01)
[2023-09-07] MEDS ORDERED: Lorazepam 0.5 MG TAB PO PRN (00:50)
[2023-09-07] MEDS: NOREPINEPHRINE 8 MG/250 ML-D5W 250 ML IVPB SCH ×6 (01:02→21:03)
[2023-09-07] MEDS: Ipratropium/Albuterol 3 ML NEB NEB SCH ×6 (02:14→22:40)
[2023-09-07 04:26] LABS: Prothrombin Time 32.8 sec (12.0-14.7)
[2023-09-07 04:29] LABS: Hematocrit 23.6 % (36.0-47.0); Manual Diff?? YES; Mean Corpuscular HGB CONC 33.9 g/dL (32.0-36.0); Mean Corpuscular Volume 91.5 fl (78.0-98.0); Mean Platelet Volume 11.2 fL (7.4-10.4); Platelet Count 146 10x3/uL (130-400); RBC Distribution Width 22.3 % (11.5-14.5); Red Blood Cell (RBC) Count 2.58 mill/uL (4.20-5.40); White Blood Cell (WBC) Count 19.6 10x3/uL (4.8-10.8)
[2023-09-07 05:04] LABS: ALT (SGPT) 136 U/L (8-55); AST (SGOT) 619 U/L (5-34); Albumin 3.5 g/dL (3.4-4.8); Alkaline Phosphatase 92 U/L (40-110); Anion Gap 18 mmol/L (10-20); BUN (Urea Nitrogen) 53 mg/dL (9.8-20.1); Calc. Creatinine Clearance 13 mL/min (70-130); Calcium 8.2 mg/dL (7.8-10.44); Carbon Dioxide 15 mmol/L (23-31); Chloride 102 mmol/L (98-107); Estimated GFR 8; Globulin 3.3 g/dL (2.4-3.5); Glucose 64 mg/dL (80-115); Potassium 3.8 mmol/L (3.5-5.1); Protein, Total 6.8 g/dL (5.8-8.1); Sodium 131 mmol/L (136-145)
[2023-09-07 05:06] LABS: Delete Auto Diff?? YES
[2023-09-07 05:21] LABS: Base Excess (BEa) -12.3 mEq/L (-2.0 to +3.0); CO2 Tension 37.3 mmHg (35.0-45.0); Calcium, Ionized (arterial) 1.11 mmol/L (1.12-1.30); Carboxyhemoglobin (COHb) 2.1 gm% (0.0-3.0); Hematocrit-ABG 27 % (36.0-47.0); Hemoglobin (Hb) 9.3 g/dL (12.0-16.0); O2 Tension (PaO2), arterial 67.2 mmHg (> 80.0); Potassium - ABG Lab 3.95 mmol/L (3.70-5.30); pH, Arterial 7.212 (7.35-7.45)
[2023-09-07 05:22] LABS: Actual Bicarbonate (HCO3a) 14.7 mEq/L (22-28); Puncture Site RBA
[2023-09-07 05:23] LABS: ALV-art Gradient 599.175 mmHg (0-20)
[2023-09-07 05:31] LABS: Bilirubin, Total 31.4 mg/dL (0.2-1.2)
[2023-09-07 06:50] LABS: Anisocytosis MODERATE=16-30 cells HPF (0-5); Band 22 % (5-11); CellaVision Operator ID LAB.JMM; Hypochromia SLIGHT = 6-15 cells HPF (0-5); Large Platelets 3.9 % (0-5); Lymphocytes 5 % (21-51); Macrocytosis SLIGHT = 6-15 cells HPF (0-5); Metamyelocyte 1 % (0-0); Monocytes 7 % (0-10); Neutrophil 66 % (42-75); Nucleated RBC (Manual Ct) 7 % (0); Platelet Adequacy Comment Platelets Normal; Polychromasia SLIGHT = 2-3 cells HPF (0-2); Smudge Cells 8.8 %; Total Cell Count 102
[2023-09-07] MEDS ORDERED: Sodium Bicarb 50 MEQ/50 ML VIAL IVP SCH (07:15)
[2023-09-07] MEDS: VASOPRESSIN IV SCH ×2 (07:27→21:04)
[2023-09-07] MEDS: ADMIXTURE FEE IV SCH ×2 (07:27→21:04)
[2023-09-07] MEDS: SODIUM CHLORIDE IV SCH ×2 (07:27→21:04)
[2023-09-07] MEDS: Sodium Bicarbonate 150 MEQ in Dextrose 5% in Water 1,000 ML IV SCH (07:34)
[2023-09-07] MEDS: Morphine 2 MG/ML VIAL SLOW IVP PRN ×6 (08:27→20:29)
[2023-09-07] MEDS: Multivit, Therapeutic 1 TAB PO SCH (08:37)
[2023-09-07] MEDS: Doxycycline 100 MG in Sodium Chloride 0.9% 100 ML IVPB SCH ×2 (08:37→21:03)
[2023-09-07] MEDS: Folic Acid 1 MG TAB PO SCH (08:37)
[2023-09-07] MEDS: Pantoprazole 40 MG VIAL IVP SCH (08:37)
[2023-09-07] MEDS: Piperacillin/Tazobactam 3.375 GM in Sodium Chloride 0.9% 100 ML IVPB SCH ×2 (08:37→21:58)
[2023-09-07] MEDS: prednisoLONE 10 MG ODT TAB PER TUBE SCH (09:02)
[2023-09-07] MEDS: Phenylephrine 40 MG/NS 250 ML 40 MG in Premix 1 BAG IVPB SCH ×3 (15:36→22:53)
[2023-09-07] MEDS: Sodium Chloride 0.9% 1,000 ML IV SCH (16:40)
[2023-09-07] MEDS: Thiamine 100 MG TAB PO SCH (21:03)
[2023-09-07 22:43] VITALS: BP 76/49
[2023-09-08 00:33] VITALS: TEMP 97.8
[2023-09-08] MEDS: Sodium Bicarbonate 150 MEQ in Dextrose 5% in Water 1,000 ML IV SCH (01:58)
[2023-09-08] MEDS: Ipratropium/Albuterol 3 ML NEB NEB SCH (02:30)
[2023-09-08 08:18] LABS: HCV RNA, log10 3.093 (.); Hep C PCR-Quant 1240 IU/mL (.)
== END 2023-09-08 02:50 | disposition expired | DRG 871 ==
LOC: ERS 18:47 → ERHOLD 23:40 → CCU 09-04 07:15
PROVIDERS: ADMIT Student in an Organized Health Care Education/Training Program; ATTEND Internal Medicine
PROC: HZ2ZZZZ Detoxification Services for Substance Abuse Treatment (ICD-10-PCS; 2023-09-03)
PROC: 3E03329 Introduction of Other Anti-infective into Peripheral Vein, Percutaneous Approach (ICD-10-PCS; 2023-09-03)
PROC: 0BH17EZ Insertion of Endotracheal Airway into Trachea, Via Natural or Artificial Opening (ICD-10-PCS; principal; 2023-09-04)
PROC: 4A133R1 Monitoring of Arterial Saturation, Peripheral, Percutaneous Approach (ICD-10-PCS; 2023-09-04)
PROC: 30233J1 Transfusion of Nonautologous Serum Albumin into Peripheral Vein, Percutaneous Approach (ICD-10-PCS; 2023-09-04)
PROC: 5A1945Z Respiratory Ventilation, 24-96 Consecutive Hours (ICD-10-PCS; 2023-09-04)
PROC: 0B9F8ZZ Drainage of Right Lower Lung Lobe, Via Natural or Artificial Opening Endoscopic (ICD-10-PCS; 2023-09-04)
PROC: 0BC68ZZ Extirpation of Matter from Right Lower Lobe Bronchus, Via Natural or Artificial Opening Endoscopic (ICD-10-PCS; 2023-09-04)
PROC: 02HV33Z Insertion of Infusion Device into Superior Vena Cava, Percutaneous Approach (ICD-10-PCS; 2023-09-05)
PROC: 3E043XZ Introduction of Vasopressor into Central Vein, Percutaneous Approach (ICD-10-PCS; 2023-09-05)
DX: A41.9 Sepsis, unspecified organism (principal); G93.41 Metabolic encephalopathy; J18.9 Pneumonia, unspecified organism; J96.01 Acute respiratory failure with hypoxia; K76.7 Hepatorenal syndrome; R65.21 Severe sepsis with septic shock; F10.239 Alcohol dependence with withdrawal, unspecified; N17.9 Acute kidney failure, unspecified; E87.1 Hypo-osmolality and hyponatremia; N18.4 Chronic kidney disease, stage 4 (severe); E87.20 Acidosis, unspecified; K80.00 Calculus of gallbladder with acute cholecystitis without obstruction; D68.4 Acquired coagulation factor deficiency; Z51.5 Encounter for palliative care; Z66 Do not resuscitate; K70.30 Alcoholic cirrhosis of liver without ascites; Z98.51 Tubal ligation status; F41.9 Anxiety disorder, unspecified; F31.9 Bipolar disorder, unspecified; F17.290 Nicotine dependence, other tobacco product, uncomplicated; J44.9 Chronic obstructive pulmonary disease, unspecified; Z88.8 Allergy status to other drugs, medicaments and biological substances; K76.82 Hepatic encephalopathy; E87.6 Hypokalemia; Z79.899 Other long term (current) drug therapy; I12.9 Hypertensive chronic kidney disease with stage 1 through stage 4 chronic kidney disease, or unspecified chronic kidney disease; D63.1 Anemia in chronic kidney disease; Z98.890 Other specified postprocedural states; Z90.89 Acquired absence of other organs; D69.6 Thrombocytopenia, unspecified; K71.6 Toxic liver disease with hepatitis, not elsewhere classified; E83.51 Hypocalcemia; K70.40 Alcoholic hepatic failure without coma
CPT/HCPCS: 36415; 36416; 36600; 70450; 71045; 74018; 74177; 76705; 80048; 80053; 80074; 80306; 80307; 82105; 82140; 82728; 82805; 83540; 83550; 83605; 83690; 83735; 83880; 84100; 84484; 85025; 85610; 85730; 87040; 87070; 87205; 87389; 87522; 88112; 88237; 88305; 93005; 94002; 94003; 94640; 96365; 96366; 96367; 96375; C9113; J1815; J2060; J2272; J2543; J2704; J3010; J3411; J3475; J3480; J3490; J7042; J7050; J7070; J7120; J7620; P9047; Q9967